=== PATIENT | male | born 1990 | race Caucasian/White ===

== ENCOUNTER 2016-11-04 13:41 | Inpatient (IN) | payer SELFPAY ==
--- NOTE | ~2016-11-04 | HP ---
Unit #: [id number] #: [id number] Patient: ALETHA FERNANDEZ [id number] [place] [address] [id number] MR#: [id number] NAME: ALETHA FERNANDEZ ROOM: P206 Age: 26 Sex: M Admission Date: 11/04/2016 : 1990 Attending Physician: Yeyo Jamison M.D. Admitting Physician: Yeyo Jamison M.D. Primary Care Physician: Primary Care Physician No HISTORY AND PHYSICAL HISTORY OF PRESENT ILLNESS Aletha is a 26 year old admitted to [address] [place] [address] because of his illicit substance abuse which includes marijuana and cocaine. He reports to us that he is homeless. PAST MEDICAL HISTORY History of illicit substance abuse. PAST SURGICAL HISTORY Nothing reported. ALLERGIES No known drug allergies. SOCIAL HISTORY Smokes one pack per day. Drinks a fifth of liquor every 2 to 3 days. Admits to using cocaine on a regular basis. FAMILY HISTORY Medically noncontributory. REVIEW OF SYSTEMS CONSTITUTIONAL: No fever or chills. HEENT: Denies any sore throat, ear pain or runny nose. CARDIOVASCULAR: Denies chest pain, irregular heart rhythm or palpitations. CHEST: Denies shortness of breath or cough. No hemoptysis. GASTROINTESTINAL: Denies nausea, vomiting, diarrhea or chronic constipation. ENDOCRINE: Denies history of increased thirst or urination. No recent significant weight loss or gain. GENITOURINARY: Denies dysuria, frequency, or hematuria. SKIN: Denies any rashes. HEMATOLOGIC: Denies history of increased bleeding or bruising. MUSCULOSKELETAL: Denies any hot, swollen joints. No generalized muscle pain. NEUROLOGIC: Denies problems with vision or speech. No frequent, severe headaches. No numbness, tingling or weakness in any extremities. Denies loss of bladder or bowel control. CURRENT MEDICATIONS 1. Risperdal 1 mg q.h.s. 2. Wellbutrin XL 150 mg q.a.m. 3. Desyrel p.r.n. Unit #: [id number] #: [id number] Patient: ALETHA FERNANDEZ 4. Milk of Magnesia p.r.n. 5. Maalox p.r.n. 6. Tylenol p.r.n. PHYSICAL EXAMINATION GENERAL: Alert, well nourished. No apparent distress. VITAL SIGNS: Blood pressure 120/70, heart rate 100, respirations 16, and temperature 98.6. WEIGHT: 165. HEIGHT: 6 feet 3 inches. SKIN: Warm and dry without rash or lesion. HEENT: Normocephalic. TMs not viewed. Oral and nasal passages clear. Conjunctivae clear. PERRLA. EOMs intact. NECK: Supple without lymphadenopathy or thyromegaly. HEART: Regular rate and rhythm without murmur. LUNGS: Clear. ABDOMEN: Soft, nontender. : Not done. EXTREMITIES: No evidence of cyanosis, clubbing or edema. Moves all without focal deficit. NEUROLOGICAL: Grossly within normal limits. Cranial Nerves: II: Visual byrd are intact. III, IV AND : Extraocular movements are intact. Pupils are equal, round and reactive to light. V: Facial sensation is grossly normal. VII: Facial movements and expression are normal. VIII: Auditory acuity grossly intact. IX, X: Uvula is midline. Phonation is normal. XI: Patient shrugs shoulders and turns head normally. XII: Tongue protrudes in the midline. Sensory and Motor Function: Sensory and motor sensation is grossly normal. Motor: moves all extremities well. Coordination: Gait is normal. Deep Tendon Reflexes: Intact. IMPRESSION Psychiatric admission. RECOMMENDATIONS PSYCHIATRIC: Per psychiatrist. MEDICAL: I see no contraindication to participate in this facility's activities. MEDICAL PROGNOSIS Good. MEDICAL CONDITION Stable. Dictated by... Elysia Gary P.A.-C. for Tom Blue/newton TD: 11/06/2016 07:03 JOB #: [id number] Unit #: [id number] #: [id number] Patient: ALETHA FERNANDEZ HISTORY AND PHYSICAL Page 1 of 1 X Elysia Gary HISTORY AND PHYSICAL
--- NOTE | ~2016-11-04 | PN ---
Unit #: [id number] #: [id number] Patient: ALETHA JUAREZ [id number] [facility] [address] [place] [address] [id number] MR#: [id number] NAME: ALETHA JUAREZ ROOM: P206 Age: 26 Sex: M Admission Date: 11/04/2016 : 1990 Attending Physician: Yeyo Jamison M.D. Admitting Physician: Tom Joy PROGRESS NOTES DATE OF SERVICE: 11/06/2016 SUBJECTIVE Mr. Juarez is a 26-year-old white male with substance abuse mood disorder, who was seen today and chart was reviewed, and case was discussed with the staff. He has been anxious, withdrawn, depressed, and rather seclusive to himself and reports that he would like to be in long-term rehab level of care. He has been taking the medications and tolerating them fairly well. MENTAL STATUS EXAMINATION Young white male who was casually dressed with fair personal hygiene, appears to be in slight acute distress and discomfort. He was awake and alert with intact orientation. His mood was anxious with a congruent affect. He denies any suicidal or homicidal ideations. His insight and judgment remain slightly impaired. TREATMENT PLAN 1. We will continue him on his current treatment protocol. We will monitor his response to medications and make further adjustments as needed. 2. We will continue to follow up. Dictated by... Tom Joy/gregorl TD: 11/06/2016 14:51 JOB #: [id number] BRITTNI PROGRESS NOTES Page 1 of 1 X Yeyo Jamison MD PROGRESS NOTE
--- NOTE | ~2016-11-04 | DS ---
Unit #: [id number] #: [id number] [facility] [id number] [facility] [address] [place] [address] [id number] MR#: [id number] NAME: ALETHA JUAREZ ROOM: [facility] Age: 26 Sex: M Admission Date: 11/04/2016 : 1990 Discharge Date: 11/07/2016 Attending Physician: Yeyo Jamison M.D. Primary Care Physician: Primary Care Physician No DISCHARGE SUMMARY IDENTIFYING DATA Mr. Juarez is a 26-year-old single white male who was transferred from [facility]. DISCHARGE DIAGNOSES Psychiatric: Major depressive disorder, recurrent, moderate, without psychotic features; cocaine dependence, moderate; cannabis dependence, moderate. Medical: None. Stressors: Moderate psychosocial stressors. HISTORY OF PRESENT ILLNESS Please see initial psychiatric evaluation for details. PAST PSYCHIATRIC HISTORY Please see initial psychiatric evaluation for details. PAST MEDICAL HISTORY Please see initial psychiatric evaluation for details. HOSPITAL COURSE The patient was admitted to the adult psychiatric and chemical dependency unit at [facility] and was oriented to the hospital environment. Routine p.r.n. medications were initiated and he was started back on his home medications, and Wellbutrin and Risperdal were initiated as mood stabilizer and antidepressant and he was closely monitored. He was taking the medications regularly and was tolerating them fairly well and was able to show a decent therapeutic response with improvement in agitation and anxiety and was willing to continue treatment on an outpatient basis. He was denying any suicidal or homicidal ideations and was not seen to be a danger to self or anyone else, and as such, it was decided that he will be discharged home and will continue treatment on an outpatient basis. DISCHARGE MEDICATIONS Risperdal 1 mg at bedtime and Wellbutrin XL 150 mg in the morning. DISCHARGE CONDITION Stable. PROGNOSIS Fair. Dictated by... Yeyo Jamison M.D. Unit #: [id number] #: [id number] Patient: ALETHA JUAREZ IAA/modl TD: 11/24/2016 00:06 JOB #: [id number] DISCHARGE SUMMARY Page 1 of 1 X Yeyo Jamison MD DISCHARGE SUMMARY
--- NOTE | ~2016-11-04 | PA ---
Unit #: [id number] #: [id number] Patient: [facility] [id number] [facility] [address] [place] [address] [id number] I MR#: [id number] NAME: ALETHA JUAREZ ROOM: P206 Age: 26 Sex: M Admission Date: 11/04/2016 : 1990 Date of Assessment: 11/05/2016 Attending Physician: Yeyo Jamison M.D. Admitting Physician: Yeyo Jamison M.D. Primary Care Physician: Primary Care Physician No PSYCHIATRIC ASSESSMENT DATE OF SERVICE 11/05/2016. IDENTIFYING DATA Mr. Juarez is a 26-year-old single white male, who is a resident of [place], [place], and was transferred to us from [facility] [place] [facility]. CHIEF COMPLAINT "I'm suicidal." HISTORY OF PRESENT ILLNESS Mr. Juarez is a 26-year-old white male with history of bipolar disorder, who is known to me from previous encounter, and took himself to [facility], stating that he has been living in his car for the past couple of days and he has been using cocaine and marijuana and that he has been having suicidal ideation and plan, but is unwilling to reveal his plan; however, he reports that he has been off the medication and has been decompensating and does report increasing agitation, anger, irritability, mood swings, depression, and feelings of hopelessness and helplessness, and suicidal ideations and plan. SUBSTANCE ABUSE HISTORY The patient reports a history of alcohol, cannabis, and cocaine. More recently, he has been using up to 2 g of cocaine on daily basis. PAST PSYCHIATRIC HISTORY The patient has a [facility] and review of the medical records indicate that he has been diagnosed and treated for bipolar disorder and is supposed to be on Risperdal, but has been noncompliant with medication and as such, has been decompensating. PAST MEDICAL HISTORY No acute or chronic medical illnesses. ALLERGIES No known medication allergies. CURRENT MEDICATIONS None. PERSONAL AND SOCIAL HISTORY Unit #: [id number] #: [id number] Patient: ALETHA JUAREZ A 26-year-old white male, who reports that he is single, unemployed, and essentially homeless and has been living in his car. MENTAL STATUS EXAMINATION Young white male, who was casually dressed with fair personal hygiene, appears to be in no acute distress or discomfort. He was awake and alert on interaction with intact orientation to time, place, and person. His mood was anxious and depressed with a congruent affect. He reports having suicidal ideations, but denies any homicidal ideations, and also denies any auditory or visual hallucinations. His insight and judgment remain slightly impaired. DIAGNOSTIC IMPRESSION Psychiatric: Bipolar disorder, most recent episode depressed, recurrent, moderate, without psychotic features; cocaine dependence, moderate; cannabis abuse, moderate. Medical: None. Stressors: Moderate psychosocial stressors. TREATMENT PLAN 1. The patient has presented with history of substance abuse and mood disorder, and has been decompensating and will need inpatient hospitalization for detoxification, safety, and stabilization. We will start him back on his home medications. We will monitor his response and make further adjustments as needed. 2. Supportive therapy was provided to the patient. ESTIMATED LENGTH OF STAY 5 to 7 days. ABILITY TO HELP SELF Limited. WILLINGNESS TO HELP SELF The patient appears to be willing to help self. STRENGTHS 1. Communicative. 2. Cooperative. PROBLEMS 1. Chronic dysphoric symptoms. 2. Chronic chemical dependency. 3. Poor social support system. DISCHARGE CRITERIA This will be contingent upon the patient's ability to go through detox without having any significant withdrawal symptoms and his ability to stay safe to himself, particularly after discharge from the hospital. Dictated by... Yeyo Jamison M.D. PRADEEP/jonathan TD: 11/05/2016 06:51 JOB #: [id number] Unit #: [id number] #: [id number] Patient: ALETHA JUAREZ PSYCHIATRIC ASSESSMENT Page 1 of 1 X Yeyo Jamison MD X PSYCHIATRIC ASSESSMENT
[~2016-11-04 13:41] MED LIST: IBUPROFEN800 MG PO; NO MEDICATIONS
== END 2016-11-07 10:37 | disposition home or self-care (01) | DRG 885 ==
LOC: P2S 20:21
PROC: HZ2ZZZZ Detoxification Services for Substance Abuse Treatment (ICD-10-PCS; principal; 2016-11-05)
DX: F31.32 Bipolar disorder, current episode depressed, moderate (principal); F14.20 Cocaine dependence, uncomplicated; F12.10 Cannabis abuse, uncomplicated; F17.210 Nicotine dependence, cigarettes, uncomplicated